=== PATIENT | female | born 1975 | race Caucasian/White ===

== ENCOUNTER 2016-11-26 09:45 | Outpatient (CLI) | payer MEDICAID, OTHER ==
[2016-11-26 13:00] LABS: BASOPHILS # (AUTO) 0.1 10^3/uL (0.0-0.1); BASOPHILS % (AUTO) 0.7 %; EOSINOPHILS # (AUTO) 0.2 10^3/uL (0.0-0.7); EOSINOPHILS % (AUTO) 2.1 %; HCT - HEMATOCRIT 38.4 % (37.0-47.0); HGB - HEMOGLOBIN 12.5 g/dL (12.0-16.0); LYMPHOCYTES # (AUTO) 2.9 10^3/uL (1.5-3.5); LYMPHOCYTES % (AUTO) 29.5 %; MEAN CORPUSCULAR HEMOGLOBIN 26.5 pg (27.0-31.0); MEAN CORPUSCULAR HGB CONC 32.5 g/dL (32.0-36.0); MEAN CORPUSCULAR VOLUME 81.5 fL (81.0-99.0); MEAN PLATELET VOLUME 8.9 fL (7.9-10.8); MONOCYTES # (AUTO) 0.6 10^3/uL (0.0-1.0); MONOCYTES % (AUTO) 6.2 %; NEUTROPHILS % (AUTO) 61.5 %; NUCLEATED RED BLOOD CELLS AUTO 0.1 /100WBC; RED BLOOD COUNT 4.71 10^6/uL (4.20-5.40); RED CELL DISTRIBUTION WIDTH 15.1 % (12.0-15.0); UNCORRECTED WHITE BLOOD COUNT 9.8 x10^3/uL; WHITE BLOOD COUNT 9.8 x10^3/uL (4.8-10.8)
[2016-11-26 13:10] LABS: ALBUMIN/GLOBULIN RATIO 1.1 (1.0-2.2); BILIRUBIN,TOTAL 0.2 mg/dL (0.2-1.0); BUN - BLOOD UREA NITROGEN 13 mg/dL (6-20); CARBON DIOXIDE - CO2 22 mmol/L (21-32); CHLORIDE 109 mmol/L (101-111); CHOL/HDL RATIO 4.1 (<4.4); CHOLESTEROL 182 mg/dL; CREATININE 0.8 mg/dL (0.4-1.0); GFR - MDRD 80 (>89); GLUCOSE 125 mg/dL (70-100); HDL CHOLESTEROL 44 mg/dL; LDL/HDL RATIO 2.2 (<4.4); POTASSIUM 3.4 mmol/L (3.5-5.0); SODIUM 141 mmol/L (135-145); TOTAL PROTEIN 7.3 g/dL (6.7-8.2); TRIGLYCERIDES 209 mg/dL; VLDL CHOLESTEROL 42 mg/dL
[2016-11-26 13:25] LABS: HEMOGLOBIN A1C 0.51 g/dL
== END 2016-11-26 09:46 | disposition home or self-care (01) ==
LOC: LAB.WCP 09:45
PROVIDERS: ATTEND Family Medicine
DX: I10 Essential (primary) hypertension (principal); E78.5 Hyperlipidemia, unspecified; E55.9 Vitamin D deficiency, unspecified; R73.01 Impaired fasting glucose; E03.9 Hypothyroidism, unspecified; D50.9 Iron deficiency anemia, unspecified
CPT/HCPCS: 36415; 80053; 80061; 82306; 83036; 84443; 85025

== ENCOUNTER 2017-01-13 18:14 | Outpatient (CLI) | payer OTHER ==
--- NOTE | 2017-01-14 08:45 | XRAY Report ---
FRONTAL LEFT HIP: 01/13/2017 CLINICAL INDICATION: Osteoarthritis. COMPARISON: 08/23/2014 FINDINGS: As requested, only a frontal view of the left hip was obtained. Osteoarthritis has worsened, now moderate. No gross fracture is seen on this single view. IMPRESSION: WORSENING OSTEOARTHRITIS. JOB #: [id number] EXT JOB #:[id number]
== END 2017-01-13 18:15 | disposition home or self-care (01) ==
LOC: DI 18:14
PROVIDERS: ATTEND Family Medicine
DX: M16.12 Unilateral primary osteoarthritis, left hip (principal)

== ENCOUNTER 2017-08-12 12:06 | Outpatient (CLI) | payer OTHER ==
[2017-08-12 18:49] LABS: BASOPHILS % (AUTO) 0.5 %; EOSINOPHILS # (AUTO) 0.2 10^3/uL (0.0-0.7); EOSINOPHILS % (AUTO) 1.8 %; HGB - HEMOGLOBIN 11.6 g/dL (12.0-16.0); LYMPHOCYTES # (AUTO) 2.9 10^3/uL (1.5-3.5); MEAN CORPUSCULAR HEMOGLOBIN 24.5 pg (27.0-31.0); MEAN CORPUSCULAR HGB CONC 31.3 g/dL (32.0-36.0); MEAN CORPUSCULAR VOLUME 78.2 fL (81.0-99.0); MEAN PLATELET VOLUME 8.7 fL (7.9-10.8); MONOCYTES # (AUTO) 0.6 10^3/uL (0.0-1.0); MONOCYTES % (AUTO) 6.6 %; NEUTROPHILS # (AUTO) 4.7 10^3/uL (1.5-6.6); NEUTROPHILS % (AUTO) 56.1 %; PLT - PLATELET COUNT 320 10^3/uL (130-450); RED BLOOD COUNT 4.74 10^6/uL (4.20-5.40); RED CELL DISTRIBUTION WIDTH 17.1 % (12.0-15.0); WHITE BLOOD COUNT 8.4 x10^3/uL (4.8-10.8)
[2017-08-12 20:14] LABS: % IRON SATURATION 9 % (20-50); ALBUMIN/GLOBULIN RATIO 1.1 (1.0-2.2); ALKALINE PHOSPHATASE 64 IU/L (42-121); ALT ALANINE AMINOTRANSFERASE 17 IU/L (10-60); AST ASPARTATE AMINOTRANSFERASE 19 IU/L (10-42); BILIRUBIN,TOTAL 0.5 mg/dL (0.2-1.0); BUN - BLOOD UREA NITROGEN 18 mg/dL (6-20); CALCIUM 9.4 mg/dL (8.5-10.3); CARBON DIOXIDE - CO2 23 mmol/L (21-32); CHLORIDE 106 mmol/L (101-111); CHOL/HDL RATIO 3.8 (<4.4); CHOLESTEROL 164 mg/dL; CREATININE 0.7 mg/dL (0.4-1.0); GFR - MDRD 93 (>89); GLUCOSE 86 mg/dL (70-100); HDL CHOLESTEROL 43 mg/dL; IRON 32 ug/dL (28-170); LDL CHOLESTEROL,CALCULATED 99 mg/dL; LDL/HDL RATIO 2.3 (<4.4); SODIUM 137 mmol/L (135-145); TOTAL IRON BINDING CAPACITY 370 ug/dL (250-450); TOTAL PROTEIN 7.5 g/dL (6.7-8.2); TRANSFERRIN 264 mg/dL (192-382); VLDL CHOLESTEROL 22 mg/dL
[2017-08-12 20:46] LABS: HB2 TOTAL 12.8 g/dL; HEMOGLOBIN A1C 0.47 g/dL; HEMOGLOBIN A1C % 5.5 % (4.6-6.2)
== END 2017-08-12 12:07 | disposition home or self-care (01) ==
LOC: LAB.WCP 12:06
PROVIDERS: ATTEND Family Medicine
DX: E78.5 Hyperlipidemia, unspecified (principal); R73.01 Impaired fasting glucose; D50.9 Iron deficiency anemia, unspecified
CPT/HCPCS: 36415; 80053; 80061; 82728; 83036; 83540; 83721; 84466; 85025

== ENCOUNTER 2017-09-23 17:06 | Outpatient (CLI) | payer OTHER ==
--- NOTE | 2017-09-24 16:51 | Ultrasound Report ---
Procedure Date: 09/23/2017 Accession Number: [id number] / [id number] Procedure: US - Pelvic w/Transvaginal CPT Code: FULL RESULT: EXAM: PELVIC ULTRASOUND EXAM DATE: 09/23/2017 06:30 PM. CLINICAL HISTORY: EXCESSIVE AND FREQUENT MENSTRUATION WITH REGULAR C. COMPARISON: None. TECHNIQUE: Realtime transabdominal pelvic scan performed to identify the uterus and adnexa and as an overview of other pelvic structures, followed by transvaginal scan to provide greater detail of the uterus and adnexa, with static image documentation. FINDINGS: Uterus: 7.3 x 4.8 x 4.8 cm, volume 88 cc. Retroflexed position. Mildly heterogeneous echotexture. No significant focal lesion. Masses: None. Endometrium: 18.4 mm. Mildly heterogeneous nonspecific appearance. No clear evidence of focal mass lesion. No subendometrial cyst formation. Cervix: Multiple small nabothian cysts. Right Ovary: 3.4 x 2.1 x 2.7 cm, volume 10.6 cc. Normal echotexture and blood flow. Physiologic cyst noted. Left Ovary: 3.5 x 1.9 x 2.5 cm, volume 17.1 cc. Normal echotexture and blood flow. Free Fluid: None. Other: None. IMPRESSION: Mildly heterogeneous uterus and endometrial stripe but no specific focal lesion identified. Multiple small nabothian cysts. No significant ovarian abnormality. [facility]
== END 2017-09-23 17:07 | disposition home or self-care (01) ==
LOC: DI 17:06
PROVIDERS: ATTEND Obstetrics & Gynecology
DX: N92.0 Excessive and frequent menstruation with regular cycle (principal)
CPT/HCPCS: 76830; 76856